=== PATIENT | male | born 1985 | race Caucasian/White ===

== ENCOUNTER → 2020-10-21 | Outpatient (CLI) | payer OTHER ==
[~2020-10-21] MED LIST: CEPH500 PO; HYDACE5 PO; SULTRIDS PO
[2020-10-23 17:04] LABS: CORONAVIRUS (COVID19) CSH-NRL Negative (Negative)
== END ==
LOC: LAB 15:21 → LAB SHORT 15:21
PROVIDERS: Family Medicine
DX: Z20.822 Contact with and (suspected) exposure to COVID-19 (principal)
CPT/HCPCS: U0003

== ENCOUNTER 2021-07-08 16:47 | Emergency (ER) | payer OTHER ==
[~2021-07-08] VITALS: Ht 172.7 cm; Wt 74.8 kg
[2021-07-08 18:34] LABS: BASOPHILS ABSOLUTE AUTO 0.02 K/mm3 (0.00-0.23); BASOPHILS PERCENT AUTO 0 % (0-2); EOSINOPHILS PERCENT AUTO 0 % (0-6); Hematocrit 41.3 % (37.0-53.0); IMMATURE GRAN ABSOLUTE AUTO 0.02 K/mm3 (0.00-0.10); IMMATURE GRAN PERCENT AUTO 0 % (0-1); LYMPHOCYTES ABSOLUTE AUTO 0.44 K/mm3 (0.84-5.20); LYMPHOCYTES PERCENT AUTO 7 % (21-46); MONOCYTES ABSOLUTE AUTO 0.65 K/mm3 (0.16-1.47); MONOCYTES PERCENT AUTO 10 % (4-13); Mean Corpuscular HGB 34.7 pg (26.0-34.0); Mean Corpuscular HGB Conc 36.3 g/dL (31.5-36.5); Mean Corpuscular Volume 96 fL (80-100); Mean Platelet Volume 10.5 fL (9.1-12.4); NEUTROPHILS ABSOLUTE AUTO 5.46 K/mm3 (1.96-9.15); NEUTROPHILS PERCENT AUTO 83 % (41-73); Platelet Count 149 K/mm3 (150-400); RDW Coefficient Variation 10.8 % (11.7-14.2); RDW Standard Deviation 38.7 fL (35.1-46.3); Red Blood Cell Count 4.32 M/mm3 (4.30-5.90); White Blood Cell Count 6.59 K/mm3 (4.00-11.30)
[2021-07-08 19:02] LABS: Ethanol (Alcohol), Blood, Med <3 mg/dL
[2021-07-08 19:06] LABS: Alanine Aminotransfer (ALT/SGP 118 U/L (12-78); Albumin, Blood 4.1 g/dL (3.4-5.0); Albumin/Globulin Ratio 1.2 (0.8-1.8); Alk Phos 72 U/L (50-136); Anion Gap 6 mmol/L (6-16); Aspartate Aminotrans (AST/SGOT 136 U/L (12-37); Bilirubin, Total 1.1 mg/dL (0.1-1.0); Blood Urea Nitrogen 9 mg/dL (8-24); CO2, Blood 31 mmol/L (21-32); Calcium, Blood 9.7 mg/dL (8.5-10.1); Chloride, Blood 94 mmol/L (98-108); Creatinine, Blood 0.64 mg/dL (0.60-1.20); Globulin, Blood 3.3 g/dL (2.2-4.0); Glomerular Filtration Rate 126 (60-); Glucose, Blood 117 mg/dL (70-99); Sodium, Blood 131 mmol/L (136-145); Total Protein, Blood 7.4 g/dL (6.4-8.2)
[2021-07-08] MEDS ORDERED: Amoxicillin500 MG PO (20:28)
[2021-07-08] MEDS ORDERED: CHLO25 PO (20:28)
== END 2021-07-08 20:38 | disposition home or self-care (01) ==
LOC: ER 16:47
PROVIDERS: Emergency Medicine
DX: F10.239 Alcohol dependence with withdrawal, unspecified (principal); R56.9 Unspecified convulsions; Y90.0 Blood alcohol level of less than 20 mg/100 ml
CPT/HCPCS: 70450; 80053; 82947; 84443; 85025; 90471; 90714; 93005; 93010; 96374; 96375; 99285-25; A9270; G0480; J2060; J2405; J7120

== ENCOUNTER 2021-10-16 18:46 | Emergency (ER) | payer OTHER ==
[~2021-10-16] VITALS: Ht 170.2 cm; Wt 65.8 kg
[~2021-10-16 18:46] MED LIST changes: +Amoxicillin500 MG PO; +CHLO25 PO
[2021-10-16] MEDS ORDERED: AMOCLA875 PO (19:14)
== END 2021-10-16 19:28 | disposition home or self-care (01) ==
LOC: ER 18:46
DX: K04.7 Periapical abscess without sinus (principal); Z79.899 Other long term (current) drug therapy
CPT/HCPCS: 41800; 99282-25; A9270

== ENCOUNTER 2022-09-06 11:11 | Day surgery (SDC) | payer OTHER ==
[~2022-09-06] VITALS: Ht 170.2 cm; Wt 78.8 kg
[2022-09-06] VITALS (10 sets, daily range): BP systolic 128–173; BP diastolic 91–118
[~2022-09-06 11:11] MED LIST changes: +AMOCLA875 PO; +Acetaminophen650 M1; +IBUP200; +Percocet 5-3251 EACH PO
--- NOTE | 2022-09-06 13:15 | NUR ---
Ambulatory in Day Surgery History, Chart, Medications and Allergies reviewed before start of procedure. Pre-Op teaching done. Pt verbalizes understanding. Patient States Post-Procedure ride home has been arranged.
--- NOTE | 2022-09-06 18:17 | NUR ---
Patient up to Ambulate independently. Gait steady. Discharge instructions reviewed with patient. Patient verbalizes understanding. Copy given to patient to take home. Patient States Post-Procedure ride home has been arranged. Discharged via wheelchair to private car for ride home. S/S OF INFECTION REVIEWED WITH PT AND COOKER OPERATOR, CALL MD WITH S/S OF INFECTION
== END 2022-09-06 22:50 | disposition home or self-care (01) ==
LOC: ORSCMMR 11:11 → ORD 15:15 → ORSCMMR 22:50
PROVIDERS: Orthopaedic Surgery
PROC: 0PSH04Z Reposition Right Radius with Internal Fixation Device, Open Approach (ICD-10-PCS; principal; 2022-09-06 14:30)
DX: S52.321D Displaced transverse fracture of shaft of right radius, subsequent encounter for closed fracture with routine healing (principal); V50.5XXA Driver of pick-up truck or van injured in collision with pedestrian or animal in traffic accident, initial encounter; F17.210 Nicotine dependence, cigarettes, uncomplicated
CPT/HCPCS: 73090; A9270; C1713; J0690; J1100; J1170; J1885; J2250; J2405; J2704; J3010; J7120

== ENCOUNTER 2024-05-28 17:22 | Emergency (ER) | payer OTHER ==
[~2024-05-28] VITALS: Ht 170.2 cm; Wt 74.4 kg
[2024-05-28 17:25] VITALS: BP 157/112
[2024-05-28] MEDS ORDERED: AMOCLA875 PO (17:58)
[2024-05-28] MEDS ORDERED: Amoxicillin/Clavulanate K 875 MG Tab PO ONE (18:00)
[2024-05-28] MEDS ORDERED: Diphth,Pertuss(Acell),Tet Vac 0.5 ML VIAL IM ONE (18:00)
== END 2024-05-28 18:36 | disposition home or self-care (01) ==
LOC: ER 17:22
DX: S62.635B Displaced fracture of distal phalanx of left ring finger, initial encounter for open fracture (principal); W45.8XXA Other foreign body or object entering through skin, initial encounter; Z23 Encounter for immunization
CPT/HCPCS: 12001; 73140; 90471; 90715; 99282-25; A9270